=== PATIENT | male | born 1945 | race African-American/Black ===

== ENCOUNTER 2024-06-23 10:12 | Inpatient (IN) | payer OTHER, MEDICAID ==
[~2024-06-23] VITALS: Ht 158.8 cm; Wt 71.7 kg
[2024-06-23 10:23] VITALS: O2SAT 99
[2024-06-23 11:07] LABS: BASOPHILS % 0.5 % (0.0-2.0); EOSINOPHILS % 0.8 % (0.0-5.0); HEMATOCRIT. 40.3 % (42.0-52.0); HEMOGLOBIN. 13.5 g/dL (14.0-18.0); LYMPHOCYTES % 22.2 % (20.0-50.0); MEAN CORPUSCULAR HEMOGLOBIN 29.9 pg (28.0-32.0); MEAN CORPUSCULAR HGB CONC 33.4 g/dL (31.0-37.0); MEAN CORPUSCULAR VOLUME 89.7 fL (80.0-94.0); MEAN PLATELET VOLUME 7.8 fl (7.4-10.4); MONOCYTES % 6.3 % (2.0-8.0); NEUTROPHILS % 70.2 % (40.0-76.0); PLATELET 223 x1000/uL (130-400); RED CELL DISTRIBUTION WIDTH 12.9 % (11.6-14.6); WHITE BLOOD COUNT 11.7 x1000/uL (4.5-11.0)
[2024-06-23 11:29] LABS: CARBON DIOXIDE 25 mEq/L (21-32); CHLORIDE 108 mEq/L (98-107); POTASSIUM 4.2 mEq/L (3.5-5.1); SODIUM 142 mEq/L (136-145)
[2024-06-23 11:30] LABS: CALCIUM 8.8 mg/dL (8.7-10.4)
[2024-06-23 11:35] LABS: CREATININE 1.1 mg/dL (0.6-1.3); GLUCOSE 171 mg/dL (70-105); TROPONIN I HIGH SENSITIVITY 22 ng/L (3.0-53); UREA NITROGEN BLOOD 13 mg/dL (9-23)
[2024-06-23] MEDS ORDERED: ACETAMINOPHEN 325MG TABLET PO PRN (11:45)
[2024-06-23] MEDS ORDERED: ONDANSETRON HCL 4MG/2ML INJ IV PRN (11:45)
[2024-06-23 13:00] VITALS: BP 94/57; PULSE 99; RESP 16; TEMP 36.5; O2SAT 97
[2024-06-23 14:49] VITALS: BP 94/57; PULSE 99; RESP 16; TEMP 37.1
[2024-06-23 16:00] VITALS: BP_SYST 106; BP_SYST 110; BP_SYST 120; BP_DIAS 55; BP_DIAS 62; PULSE 61; RESP 16; TEMP 36.6; O2SAT 98
[2024-06-23 18:50] VITALS: BP_SYST 111; BP_SYST 90; BP_SYST 99; BP_DIAS 52; BP_DIAS 53; BP_DIAS 64
[2024-06-23 19:38] LABS: CLARITY URINE CLEAR (CLEAR); GLUCOSE URINE NEGATIVE (NEGATIVE); KETONES URINE TRACE (NEGATIVE); LEUKOCYTE ESTERASE URINE TRACE (NEGATIVE); NITRITE URINE NEGATIVE (NEGATIVE); OCCULT BLOOD URINE NEGATIVE (NEGATIVE); PROTEIN URINE 1+ (NEGATIVE); SPECIFIC GRAVITY URINE 1.022 (1.005-1.030)
[2024-06-23 19:53] LABS: *AMPHETAMINES SCREEN URINE NEGATIVE (NEGATIVE); *BARBITURATES SCREEN URINE NEGATIVE (NEGATIVE); *BENZODIAZEPINES SCREEN URINE NEGATIVE (NEGATIVE); *COCAINE SCREEN URINE NEGATIVE (NEGATIVE); METHADONE URINE SCREEN NEGATIVE (NEGATIVE)
[2024-06-23 19:54] LABS: CANNABINOID URINE SCREEN NEGATIVE (NEGATIVE); ECSTASY MDMA SCREEN URINE NEGATIVE (NEGATIVE); OPIATES URINE SCREEN NEGATIVE (NEGATIVE); PHENCYCLIDINE URINE SCREEN NEGATIVE (NEGATIVE)
[2024-06-23 19:59] LABS: COLOR URINE YELLOW (YELLOW)
[2024-06-23 20:00] VITALS: BP 101/54; PULSE 77; RESP 18; TEMP 36.3; O2SAT 99
[2024-06-23 20:00] LABS: WBC URINE 0-2 /hpf (0-2)
[2024-06-23 20:01] LABS: RBC URINE NONE SEEN /hpf (0-2); SQUAMOUS EPITHELIAL CELL URINE RARE /lpf (RARE/1+)
[2024-06-23 20:02] LABS: BACTERIA URINE TRACE
[2024-06-23] MEDS ORDERED: ASPI-1160 PO (20:15)
[2024-06-23] MEDS ORDERED: ATOR40TA70 PO (20:15)
[2024-06-23] MEDS ORDERED: BICT1TAB PO (20:15)
[2024-06-23] MEDS ORDERED: LISI10TA26 PO (20:15)
[2024-06-23] MEDS ORDERED: FAMO20TA8 PO (20:15)
[2024-06-23] MEDS ORDERED: CLOP75TA33 PO (20:15)
[2024-06-23 22:16] LABS: TROPONIN I HIGH SENSITIVITY 102 ng/L (3.0-53)
[2024-06-24] VITALS: BP 120/67; PULSE 63; RESP 18; TEMP 36.5; O2SAT 98
[2024-06-24 04:00] VITALS: BP 145/74; PULSE 10; RESP 18; TEMP 36.5; O2SAT 97
[2024-06-24 08:00] VITALS: BP 126/91; PULSE 62; RESP 16; TEMP 36.4; O2SAT 97
[2024-06-24] MEDS: CLOPIDOGREL 75MG TABLET PO SCH (08:53)
[2024-06-24] MEDS: ASPIRIN 81MG TABLET PO SCH (08:53)
[2024-06-24] MEDS: FAMOTIDINE 20MG TABLET PO SCH (08:54)
[2024-06-24 12:00] VITALS: BP 103/60; PULSE 80; RESP 16; TEMP 36.2; O2SAT 97
[2024-06-24] MEDS: ENOXAPARIN 40MG/0.4ML SYR SUBCUT SCH (13:55)
[2024-06-24 16:00] VITALS: BP 124/70; PULSE 60; RESP 16; TEMP 36.3; O2SAT 97
[2024-06-24 20:00] VITALS: BP_SYST 104; BP_SYST 115; BP_DIAS 46; BP_DIAS 53; PULSE 61; PULSE 65; RESP 18; RESP 20; TEMP 36.3; TEMP 36.5; O2SAT 98
[2024-06-24] MEDS: ATORVASTATIN CALCIUM 40MG TABLET PO SCH (21:14)
[2024-06-25] VITALS: BP 160/74; PULSE 60; RESP 20; TEMP 36.7; O2SAT 99
[2024-06-25 04:00] VITALS: BP 105/61; RESP 18; TEMP 36.3; O2SAT 95
[2024-06-25 08:00] VITALS: BP 127/61; PULSE 75; RESP 19; TEMP 36.3; O2SAT 97
[2024-06-25 12:00] VITALS: BP 137/71; PULSE 54; RESP 22; TEMP 36.8; O2SAT 100
== END 2024-06-25 14:25 | disposition home or self-care (01) | DRG 812 ==
LOC: ER 10:12 → 5WST 11:30 → EDBEDREQ 11:33 → EDBEDREQTM 11:33
PROVIDERS: ADMIT Internal Medicine; ATTEND Internal Medicine
DX: T50.991A Poisoning by other drugs, medicaments and biological substances, accidental (unintentional), initial encounter (principal); G92.8 Other toxic encephalopathy; I21.A1 Myocardial infarction type 2; G90.89 Other disorders of autonomic nervous system; I10 Essential (primary) hypertension; Z88.0 Allergy status to penicillin; Y92.89 Other specified places as the place of occurrence of the external cause
CPT/HCPCS: 36415; 71045; 80048; 80305; 81003; 82962; 83880; 84484; 85025; 93005; 99285; A4606; J1650